=== PATIENT | female | born 1945 | race Caucasian/White ===

== ENCOUNTER 2017-01-11 19:23 | Emergency (ER) | payer MEDICARE, OTHER ==
[~2017-01-11] VITALS: Ht 165.1 cm; Wt 132.3 kg
[~2017-01-11 19:23] MED LIST: AMLO5TAB2 PO; ASPI-628 PO; GLIP2.5T2 PO; MAGN200T PO; METF10002 PO; NAPR500T5 PO; OXAP-1 PO; TOP200 PO; VALS320T12 PO
[2017-01-11 19:33] VITALS: BP 193/89; PULSE 78; RESP 18; O2SAT 97
--- NOTE | 2017-01-11 20:01 | ED.REPORT ---
HPI-Abd Pain F 40 and Over Date of Service January 11, 2017 ED Provider: The patient is a 71 year old female with history of kidney stones, hypertension , and diabetes mellitus, who presents to the emergency department complaining of severe left-sided flank pain that began a few hours ago. She has also experienced lower abdominal pain, back pain, increased urination frequency, nausea, and vomiting. Her pain has waxed and waned since onset. Her pain is currently an 8/10 and at most severe it was a 10/10. Her current symptoms are similar to when she was previously diagnosed with a kidney stone. Her last kidney stone was about 1 year ago. She denies dysuria, hematuria, fever or chills. Nursing Notes Stated Complaint: ABDOMINAL PAIN, HIGH BLOOD PRESSURE Chief Complaint: Female Abdominal Pain Nursing Notes Reviewed: Yes Allergies: Coded Allergies: Penicillins (Verified Allergy, Unknown, 02/22/15) Sulfa (Sulfonamide Antibiotics) (Verified Allergy, Unknown, 02/22/15) Zinc (Verified Allergy, Unknown, 02/22/15) oxycodone (Verified Allergy, Unknown, 02/22/15) Scheduled Amlodipine (Amlodipine) 5 Mg Tablet 5 MG PO DAILY Aspirin (Aspir 81) 81 Mg Tablet.dr 81 MG PO DAILY Ciprofloxacin (Ciprofloxacin) 500 Mg Tablet 500 MG PO BID Glipizide ER (Glipizide ER) 2.5 Mg Tab.er.24 2.5 MG PO DAILY Magnesium (Magnesium) 200 Mg Tablet 400 MG PO BID Metformin (Metformin) 1,000 Mg Tablet 1,000 MG PO BIDWM Metoprolol Succinate ER (Toprol XL) 200 Mg Tabcr 200 MG PO DAILY Oxaprozin (Oxaprozin) 600 Mg Tablet 600 MG PO DAILY Valsartan (Valsartan) 320 Mg Tablet 320 MG PO DAILY Scheduled PRN Hydrocodone-Acetaminophen 5-325 mg (Hydrocodone-Acetaminophen 5-325 mg) 1 Each Tablet 1 TABLET PO Q4H PRN PRN For Pain Naproxen (Naproxen) 500 Mg Tablet.dr 500 MG PO BID PRN PRN For Pain Ondansetron ODT (Ondansetron ODT) 4 Mg Tab.rapdis 4 MG PO Q6H PRN PRN For Nausea General Time Seen by MD: 20:01 Chief Complaint Flank pain left Hx Obtained From: Patient Arrived By: Walk-in Sudden in Onset?: Yes Onset Occurred: 1 - 4 hours ago Symptom Duration: Waxes and wanes Progression since Onset: Waxes and wanes Location: : Flank left Quality: Painful Radiation: : Back: Suprapubic Severity: Current: Pain level 8 out of 10 Severity: Maximum: Pain level 10 out of 10 Associated with: Reports: Back pain, Nausea, Vomiting Pertinent Negative: Pt denies other symptoms Recent Healthcare: No recent doctor visit, No recent hospitalization Similar Sx Previous: Yes Past Medical History Past Medical History Notes: Urologist: Dr. Blackmon Past Medical History Kidney stones Diabetes mellitus Hypertension Family History Noncontributory Smoking History Former Smoker Social History Other Social History: Good social support, , Local resident Ambulatory Status Independent Review of Systems Constitutional: Denies: Chills, Fever GI: Reports: Abdominal pain, Nausea, Vomiting Female: Reports: Flank pain, Urinary frequency, Urination increased, Denies: Dysuria, Hematuria Musculoskeletal: Reports: Back pain Complete sys rev & neg: except as marked. Physical Exam Vital Signs Vital Signs (First) Date Time Temp Pulse Resp B/P Pulse Ox O2 Delivery O2 Flow Rate FiO2 01/11/17 19:33 36.1 78 18 193/89 97 Room Air Initial VS: Reviewed, Vital signs abnormal Head / Eyes: Atraumatic, Normocephalic, PERRL ENT: Mucous membranes moist, Conjunctiva normal, No scleral icterus Neck: Supple, Non-tender, Full range of motion Extremities: Vascular intact, Neuro intact, No swelling, No tenderness Skin: Warm, Dry, No cyanosis Neurologic: Alert, Oriented, Nonfocal Psychiatric: Mood/affect normal, Behavior normal, Normal thought content General/Constitutional: Awake, Alert, Cooperative Respiratory / Chest: Atraumatic, Breath sounds NL, Breath sounds = bilat, No respiratory distress, No rales, No rhonchi, No wheezing, No stridor Cardiovascular: Heart rate NL, Regular rhythm, Heart sounds NL, No murmurs, No rubs, Peripheral circulation NL Abdomen: Soft, No guarding, No rebound, BS normoactive, No distention, No hernia, No palpable mass, No pulsatile mass Tenderness to LLQ, suprapubic region, and RLQ, worse to the LLQ. Back: No midline vertebral tend Flank / Spine / Paraspinal: Positive: Flank tender L Interpretation & Diagnostics CT KUB IMPRESSION: Mildly obstructive proximal left ureteral calculus, with additional left nephrolithiasis as detailed above. Additional chronic and incidental findings as above Dictated by: Pranav Soto M.D. on 01/11/2017 at 20:47 Lab Results Interpretation Result Diagram: 01/11/17200501/11/172005 Test 01/11/17 20:06 01/11/17 20:07 01/11/17 21:48 White Blood Count 7.8th/mm3 (3.8-10.1) Red Blood Count 4.08mil/mm3 (3.90-5.20) Hemoglobin 13.1g/dL (12.0-15.6) Hematocrit 38.8% (35.0-46.0) Mean Corpuscular Volume 95.1fL (81-100) Mean Corpuscular Hemoglobin 32.1pg (27.0-35.0) Mean Corpuscular Hemoglobin Concent 33.8% (32.0-37.0) Red Cell Distribution Width 12.6% (12.3-15.4) Platelet Count 145bil/L (150-400) Neutrophils (%) (Auto) 71.8% (40-74) Lymphocytes (%) (Auto) 16.0% (14-46) Monocytes (%) (Auto) 10.5% (4-12) Eosinophils (%) (Auto) 1.5% (0-5) Basophils (%) (Auto) 0.1% (0-3) Sodium Level 135mEq/L (134-144) Potassium Level 4.3mEq/L (3.5-5.2) Chloride Level 95mEq/L (97-108) Carbon Dioxide Level 25mmol/L (18-29) Blood Urea Nitrogen 23mg/dL (8-27) Creatinine 0.81mg/dL (0.57-1.00) Estimat Glomerular Filtration Rate 100mL/min (>59) Glucose Level 263mg/dL (60-99) Calcium Level 9.8mg/dL (8.5-10.1) Magnesium Level 1.5mg/dL (1.6-2.6) Total Bilirubin 0.3mg/dL (0.0-1.2) Aspartate Amino Transf (AST/SGOT) 16U/L (0-50) Alanine Aminotransferase (ALT/SGPT) 20U/L (0-32) Alkaline Phosphatase 74U/L (25-165) Total Protein 7.3g/dL (6.4-8.4) Albumin 3.9g/dL (3.4-5.0) Lipase 32U/L (13-60) Hold Thomson Top Tube Received (Received) Urine Color Yellow (YELLOW) Urine Appearance Slightly cloudy Urine pH 5.5 (5.0-8.0) Urine Specific [place] 1.025 (1.003-1.035) Urine Protein 100mg/dL (NEG,TRACE) Urine Glucose (UA) Negativemg/dL (NEGATIVE) Urine Ketones Negativemg/dL (NEGATIVE) Urine Occult Blood Small (NEGATIVE) Urine Nitrite Positive (NEGATIVE) Urine Bilirubin Moderate (NEGATIVE) Urine Ictotest Negative (Negative) Urine Urobilinogen Mmg/dL (NORMAL) Urine Leukocyte Esterase Trace (NEGATIVE) Urine RBC 0-2/hpf (0-2) Urine WBC >50/hpf (0-5) Urine Epithelial Cells Few/hpf (NONE-MOD) Urine Crystals None seen (NONE SEEN) Urine Bacteria Many/hpf (NONE-FEW) Urine Hyaline Casts None/lpf (NONE) Urine Granular Casts None seen (NONE SEEN) Urine Waxy Casts None seen (NONE SEEN) Urine Red Blood Cell Casts None seen (NONE SEEN) Urine White Blood Cell Casts None seen (NONE SEEN) Urine Mucus None seen (None Seen) Urine Trichomonas None seen (NONE SEEN) Urine Yeast None (NONE SEEN) Urinalysis Comment None Urine Culture Reflexed Indicated Re-Eval/Medical Decision Med Decision/Clinical Course The patient presents with symptoms of renal colic as well as pyelonephritis. CT confirms only mildly obstructing stone. The patient was started on antibiotics and pain medication. She does not show any signs of systemic illness at this point it was felt safe for outpatient treatment. She has urologist Dr. Blackmon whom she was told to contact on Friday. Source of Hx: Old records Re-Evaluation/Progress : Time of Eval: 22:33 Re-Evaluation/Progress Note: Rechecked the patient. Discussed results, diagnosis, and plan for discharge. All questions were addressed. Counseled Regarding: Diagnosis, Lab results, Need for follow-up, When/why to return to ED Discharge & Departure Primary Impression: Renal colic Additional Impression: Urinary tract infection Urinary tract infection type: site unspecified Hematuria presence: without hematuria Qualified Code: N39.0 - Urinary tract infection, site not specified Disposition: Home Discharge Condition All VS Reviewed: Yes Condition: Stable Patient Instructions: Renal Colic (ED), Urinary Tract Infection in Women (GEN) Additional Instructions: Thank you for entrusting us with your care today. Your CT scan shows evidence of a kidney stone. Your stone is 3 mm. Use the pain medication and nausea medication as needed. Use the urine strainer to catch the stone. Your urinalysis also shows evidence of a urinary tract infection. We have written you a prescription for an antibiotic. Make sure to drink plenty of fluids. You should followup with your urologist next week for further evaluation and management. Seek care sooner for increased pain, inability to urinate, fever, uncontrollable vomiting, or any other new or concerning symptoms. Referrals: Daryl Lucia MD (PCP) Shonna Blackmon MD Attestation Portions of this note were transcribed by Cat Deal. I, Dr. Waters personally performed the history, physical exam and medical decision-making; I reviewed and confirmed the accuracy of the information in the transcribed note. Signed by: Jose R Diaz, 01/11/2017 at 2245. copies to: Daryl Lucia MD; Shonna Blackmon MD, Jena M MD January 11, 2017 20:01 Cat Deal January 11, 2017 20:08
[2017-01-11 20:10] LABS: BASOPHILS % (AUTO) 0.1 % (0-3); EOSINOPHILS % (AUTO) 1.5 % (0-5); MONOCYTES % (AUTO) 10.5 % (4-12); Mean Corpuscular Hemoglobin 32.1 pg (27.0-35.0); Mean Corpuscular Volume 95.1 fL (81-100); NEUTROPHILS % (AUTO) 71.8 % (40-74); Platelet Count 145 bil/L (150-400)
[2017-01-11] MEDS ORDERED: 0.9% Sodium Chloride 1,000 ML IV ONE ×2 (20:10→21:30)
[2017-01-11] MEDS: HYDROmorphone 0.5 mg/0.5 mL iSecure Syringe IVPUSH PRN ×2 (20:17→20:49)
[2017-01-11] MEDS: Ondansetron 2 mg/mL 2 mL Inj IVPUSH PRN ×2 (20:17→20:49)
[2017-01-11 20:33] LABS: Magnesium 1.5 mg/dL (1.6-2.6)
--- NOTE | 2017-01-11 20:54 | DRSVH ---
PROCEDURE: CT KUB ([id number]) INDICATIONS: left flank pain TECHNIQUE: Noncontrast 5 mm thick sections acquired from the diaphragms to the symphysis. 5 mm thick coronal an d sagittal reformats were then performed. For radiation dose reduction, the following was used: aut omated exposure control, adjustment of mA and/or kV according to patient size. COMPARISON: None. FINDINGS: Image quality: Excellent. Lung bases: Lung bases are clear. Heart size is normal. Urinary system: The paired left left renal calculi measuring approximately 2 mm seen on image 44 seri es 2. There is a larger 7 mm left renal calculus on image 41. There is left perinephric stranding and asymmetric enlargement related to a mildly obstructive 3 mm left renal calculus on image 46. No right-sided urolithiasis is identified. No evidence of right-sided urinary obstruction Other solid organs: Liver and spleen are normal in size. Gallbladder contains a 1 mm calculus incid entally noted. No definite pericholecystic inflammation. Pancreas is normal in contours. No adrenal nodules. Peritoneum and bowel: Unenhanced bowel loops demonstrate normal wall thickness and caliber. No free fluid or air. Appendix normal. There is a small hiatal hernia Nodes and vessels: No retroperitoneal or mesenteric adenopathy by size criteria. Aorta and inferior vena cava are normal in caliber. Abdominal wall: No ventral hernias. Pelvis: No free pelvic fluid. Multiple presumed calcified uterine fibroids. No inguinal hernias or a denopathy. Bones: No suspicious bony lesions. No vertebral body compression fractures. IMPRESSION: Mildly obstructive proximal left ureteral calculus, with additional left nephrolithiasis as detailed above. Additional chronic and incidental findings as above Dictated by: Pranav Soto M.D. on 01/11/2017 at 20:47 Approved by: Pranav Soto M.D. on 01/11/2017 at 20:52
[2017-01-11 21:03] VITALS: BP 180/65; PULSE 80; RESP 16; O2SAT 92
[2017-01-11] MEDS ORDERED: Ketorolac 15 mg/mL Inj IVPUSH ONE (21:05)
[2017-01-11 22:19] LABS: APPEARANCE,URINE SLIGHTLY CLOUDY (CLEAR,HAZY); COLOR,URINE YELLOW (YELLOW)
[2017-01-11 22:20] LABS: ICTOTEST,URINE NEGATIVE (Negative); OCCULT BLOOD,URINE SMALL (NEGATIVE); PH,URINE 5.5 (5.0-8.0); UROBILINOGEN,URINE M mg/dL (NORMAL)
[2017-01-11] MEDS ORDERED: ONDA4TAB12 PO (22:35)
[2017-01-11] MEDS ORDERED: HYDR-4003 PO (22:35)
[2017-01-11] MEDS ORDERED: CIPR-198 PO (22:35)
[2017-01-11] MEDS ORDERED: _HYDROcodone/APAP 5-325 mg Tablet PO PRN (22:40)
[2017-01-11 22:41] VITALS: BP 154/60; PULSE 85; RESP 21; O2SAT 95
[2017-01-11 22:56] VITALS: BP 154/60; PULSE 85; RESP 21; O2SAT 95
[2017-01-12] MEDS ORDERED: HYDR-3605 PO (13:41)
[2017-01-12] MEDS ORDERED: OXYC10TA8 PO (13:41)
[2017-01-12] MEDS ORDERED: HYDR25TA4 PO (13:41)
[2017-01-12] MEDS ORDERED: MELO-259 PO (13:41)
[2017-01-12] MEDS ORDERED: PREG150C PO (13:41)
[2017-01-12] MEDS ORDERED: GLIP5TAB21 PO (13:41)
[2017-01-12] MEDS ORDERED: ASPI-973 PO (17:34)
[2017-01-12] MEDS ORDERED: METF500T4 PO (17:35)
[2017-02-05] MEDS ORDERED: NPR500T PO (11:24)
[2017-02-05] MEDS ORDERED: HYDR-3825 PO (11:24)
[2017-02-05] MEDS ORDERED: DULO60CA61 PO (11:24)
[2017-02-05] MEDS ORDERED: TAMS0.4C98 PO (11:24)
[2017-02-05] MEDS ORDERED: MAGN100T5 PO (11:24)
[2017-02-05] MEDS ORDERED: HYDR-4003 PO (11:24)
[2017-02-05] MEDS ORDERED: OXAP-1 PO (11:24)
[2017-02-05] MEDS ORDERED: VALS320T12 PO (11:24)
[2017-02-05] MEDS ORDERED: SIMV20TA4 PO (11:46)
== END 2017-01-11 23:23 | disposition home or self-care (01) ==
LOC: SED 19:23
DX: N23 Unspecified renal colic (principal); N39.0 Urinary tract infection, site not specified; B96.1 Klebsiella pneumoniae [K. pneumoniae] as the cause of diseases classified elsewhere; I10 Essential (primary) hypertension; E11.9 Type 2 diabetes mellitus without complications; Z79.82 Long term (current) use of aspirin; Z79.84 Long term (current) use of oral hypoglycemic drugs; Z87.891 Personal history of nicotine dependence; Z88.0 Allergy status to penicillin; Z88.2 Allergy status to sulfonamides; Z88.5 Allergy status to narcotic agent; Z88.8 Allergy status to other drugs, medicaments and biological substances
CPT/HCPCS: 36415; 74176; 80053; 81000; 83690; 83735; 85025; 87077; 87086; 87088; 87186; 96374; 96375; 96376; 99285; J1170; J1885; J2405; J7030

== ENCOUNTER 2017-01-12 13:11 | Inpatient (IN) | payer MEDICARE, OTHER ==
[~2017-01-12] VITALS: Ht 165.1 cm; Wt 135.9 kg
[2017-01-12] VITALS (14 sets, daily range): BP systolic 100–139; BP diastolic 46–66; PULSE 73–78; RESP 15–20; O2SAT 88–98
--- NOTE | 2017-01-12 13:09 | ED.REPORT ---
HPI-Neurologic Deficit Date of Service January 12, 2017 ED Provider: Cam Syed DO The pt is a 71 y/o female w/ a hx of current proximal left ureteral colic wjth partial obstruction, diabetes mellitus, and HTN presenting to the ED via EMS due to syncope earlier this morning. The patient was with her daughte when she began to feel weak and generally unwell and experienced a syncopal episode. EMS was called and reports left-sided weakness on scene. They noted her BP while laying down was 80/40 and improved to 140/80 on route to the ED. Her GCS score was originally 7 but improved to 15 after laying down. She was afebrile. Per the pt, she is experiencing back and lower abdominal pain rated w/ a severity of 8/10, and nausea. She is on narcotic pain medications and does not remember taking any today but she is unsure and "could have". She was here yesterday for renal colic and was given Dilaudid and an antibiotic. Nursing Notes Stated Complaint: WEAKNESS Nursing Notes Reviewed: Yes Allergies: Coded Allergies: morphine (Verified Allergy, Mild, "I go banana's", 01/12/17) Penicillins (Verified Allergy, Unknown, 02/22/15) Sulfa (Sulfonamide Antibiotics) (Verified Allergy, Unknown, 02/22/15) Zinc (Verified Allergy, Unknown, 02/22/15) oxycodone (Verified Allergy, Unknown, 02/22/15) Scheduled Amlodipine (Amlodipine) 5 Mg Tablet 10 MG PO DAILY Aspirin (Aspir 81) 81 Mg Tablet.dr 81 MG PO DAILY Glipizide ER (Glipizide ER) 10 Mg Tab.er.24 10 MG PO DAILY Hydrochlorothiazide (Hydrochlorothiazide) 25 Mg Tablet 25 MG PO DAILY Meloxicam (Meloxicam) 7.5 Mg Tablet 7.5 MG PO DAILY Metformin (Metformin) 1,000 Mg Tablet 1,000 MG PO BIDWM Metoprolol Succinate ER (Toprol XL) 200 Mg Tabcr 200 MG PO DAILY Pregabalin (Lyrica) 150 Mg Capsule 150 MG PO HS Scheduled PRN HydrOXYzine HCl (HydrOXYzine HCl) 10 Mg Tablet 10 MG PO BID PRN PRN For Itching oxyCODONE (oxyCODONE) 10 Mg Tablet 10 MG PO Q4H PRN PRN For Pain General Time Seen by Provider: 13:13 Chief Complaint Syncope Hx Obtained From: Patient, EMS Arrived By: Ambulance Sudden in Onset?: Yes Onset Occurred: Just prior to arrival Symptom Duration: 1 - 15 minutes Location: : Back lower Quality: Painful Severity: Current: Moderate Severity: Maximum: Moderate Recent Healthcare: No recent hospitalization, Recent doctor visit Past Medical History Past Medical History Notes: Urologist: Dr. Blackmon Past Medical History Kidney stones Diabetes mellitus Hypertension Past Surgical History None reported Family History Noncontributory Smoking History Former Smoker Social History Other Social History: Good social support, , Local resident Ambulatory Status Independent Review of Systems Constitutional: Denies: Fever GI: Reports: Abdominal pain (Lower), Nausea Musculoskeletal: Reports: Back pain Neurologic: Reports: Syncope, Weakness (L sided ) Complete sys rev & neg: except as marked. Physical Exam Initial Vital Signs Vital Signs (First) Date Time Temp Pulse Resp B/P Pulse Ox O2 Delivery O2 Flow Rate FiO2 01/12/17 13:20 36.3 75 16 105/46 88 Nasal Cannula 2 Initial VS: Reviewed Alertness: Positive: Somnolent Appearance / Presentation: Positive: Obese Head / Eyes: Atraumatic, Normocephalic Pupils reactive 3:2 Respiratory / Chest: Atraumatic, Breath sounds NL, Breath sounds = bilat, No respiratory distress, No rales, No rhonchi, No wheezing Cardiovascular: Heart rate NL, Regular rhythm, Heart sounds NL Neurologic: Oriented X3, Speech NL, No motor deficits, No sensory deficits, CN II - XII intact, Reflexes equal bilat, Cerebellar NL ENT: Atraumatic, Airway patent Neck: Atraumatic, Supple, Full range of motion Abdomen: Soft, No guarding, No rebound Lower abd tenderness Back: Atraumatic, Full range of motion Skin: Atraumatic, Color NL, No rash, Warm, Dry Interpretation & Diagnostics Lab Results Interpretation Result Diagram: 01/12/17 1310 01/12/17 1310 Test 01/12/17 13:10 White Blood Count 14.2th/mm3 (3.8-10.1) Red Blood Count 4.04mil/mm3 (3.90-5.20) Hemoglobin 12.9g/dL (12.0-15.6) Hematocrit 38.8% (35.0-46.0) Mean Corpuscular Volume 96.0fL (81-100) Mean Corpuscular Hemoglobin 31.9pg (27.0-35.0) Mean Corpuscular Hemoglobin Concent 33.2% (32.0-37.0) Red Cell Distribution Width 12.7% (12.3-15.4) Platelet Count 145bil/L (150-400) Neutrophils (%) (Auto) 87.2% (40-74) Lymphocytes (%) (Auto) 4.2% (14-46) Monocytes (%) (Auto) 8.2% (4-12) Eosinophils (%) (Auto) 0.1% (0-5) Basophils (%) (Auto) 0.1% (0-3) D-Dimer 3.16mg/L FEU (<0.50) Sodium Level 136mEq/L (134-144) Potassium Level 4.6mEq/L (3.5-5.2) Chloride Level 100mEq/L (97-108) Carbon Dioxide Level 19mmol/L (18-29) Blood Urea Nitrogen 21mg/dL (8-27) Creatinine 1.32mg/dL (0.57-1.00) Estimat Glomerular Filtration Rate 57mL/min (>59) Glucose Level 327mg/dL (60-99) Calcium Level 9.0mg/dL (8.5-10.1) Magnesium Level 1.2mg/dL (1.6-2.6) Total Bilirubin 0.6mg/dL (0.0-1.2) Aspartate Amino Transf (AST/SGOT) 16U/L (0-50) Alanine Aminotransferase (ALT/SGPT) 17U/L (0-32) Alkaline Phosphatase 47U/L (25-165) Troponin T 0.010ug/L (0.0-0.011) Pro-B-Type Natriuretic Peptide 2564pg/mL (0-301) Total Protein 6.6g/dL (6.4-8.4) Albumin 3.4g/dL (3.4-5.0) ECG Interpretation ECG Interpretation: Rate 77 Normal sinus rhythm Time: 14:17 Interpreted by: ED physician X-Ray Chest Interpretation Chest Xray Interpretation: 1. Increased bilateral perihilar opacities and hilar fullness. Findings are nonspecific but mediastinal mass or lymphadenopathy cannot be excluded. Recommend a followup PA and lateral study or CT. 2. Left basilar peripheral opacities consistent with consolidation or atelectasis. Dictated by: Alexander Jules M.D. on 01/12/2017 at 13:51 Approved by: Alexander Jules M.D. on 01/12/2017 at 13:53 View: Portable, 1 view Interpretation / Wet Read by: Interpret - Radiologist CT Head Interpretation IMPRESSION: 1. No acute intracranial abnormality. 2. Mild cerebral volume loss and chronic white matter small vessel ischemic changes. Dictated by: Alexander Jules M.D. on 01/12/2017 at 14:12 Approved by: Alexander Jules M.D. on 01/12/2017 at 14:16 Study: Head CT no contrast Interpretation / Wet Read by: Interpret - Radiologist CT Chest Interpretation IMPRESSION: 1. No central pulmonary embolism. Evaluation of subsegmental branches limited due to motion artifact. 2. Dependent atelectasis in the lungs without consolidation. 3. Bilateral adrenal nodules which demonstrate attenuation values on prior CT consistent with adenomas. 4. Cholelithiasis. Dictated by: Alexander Jules M.D. on 01/12/2017 at 14:16 Approved by: Alexander Jules M.D. on 01/12/2017 at 14:24 Study type: CT pulm angiogram Interpretation / Wet Read by: Interpret - Radiologist Re-Eval/Medical Decision Med Decision/Clinical Course Likely pyelonephritis and a non-obstructing kidney stone with associated syncope, hypotension in the prehospital setting and hypomagnesemia. Patient will be admitted. IV Rocephin and 4 g IV magnesium given. Patient will be taken to the OR for stent placement. Source of Hx: Old records, EMS Re-Evaluation/Progress : Time of Eval: 14:54 Re-Evaluation/Progress Note: Told pt Dr. Blackmon will see her. Discussed diagnosis and plan for admission. Code status discussed: Full code All questions addressed. Consultation #1: Referral / Consult Name: Shonna Blackmon MD Consulted With: Urology Call Returned at: 14:45 Note: Discussed pt plan. Pt needs a stent for infected kidney stone. Consultation #2: Referral / Consult Name: Glendy Wolf MD Consulted With: Hospitalist Call Returned at: 15:11 Packer Inspector: Will see patient, Agrees with eval, Agrees with plan, Accepts admit Counseled Regarding: Diagnosis, Lab results, Need for admission Discharge & Departure Impression: Primary Impression: Obstructive pyelonephritis Additional Impression: Syncope Syncope type: unspecified Qualified Code: R55 - Syncope and collapse Disposition: ADMITTED TO HOSPITAL Discharge Condition All VS Reviewed: Yes Condition: Stable Referrals: Annalee Barton MD (PCP) Crit Care Except Billable Proc Time Spent: 30-74 minutes Services Performed: Patient management by me, Time spent at bedside, Reviewing test results Critical Care Notes: See MDM Scribe Attestation Portions of this note were transcribed by Jonny Spencer and Mingo Dick. I, Dr. Myra Aguiar personally performed the history, physical exam and medical decision- making; I reviewed and confirmed the accuracy of the information in the transcribed note. Signed by: Jonny Spencer and Mingo Dick, Scribes, 01/12/17 and 1338. copies to: Annalee Barton MD, Timothy Ilsa FISHER January 12, 2017 13:09 Jonny Spencer January 12, 2017 13:25 MINGO DICK January 12, 2017 14:04
[~2017-01-12 13:11] MED LIST changes: +CIPR-198 PO; +HYDR-4003 PO; +ONDA4TAB12 PO
[2017-01-12] MEDS ORDERED: 0.9% Sodium Chloride 1,000 ML IV ONE (13:16)
[2017-01-12] MEDS ORDERED: Ondansetron 2 mg/mL 2 mL Inj IVPUSH ONE (13:20)
[2017-01-12 13:24] LABS: BASOPHILS % (AUTO) 0.1 % (0-3); EOSINOPHILS % (AUTO) 0.1 % (0-5); MONOCYTES % (AUTO) 8.2 % (4-12); Mean Corpuscular Hemoglobin 31.9 pg (27.0-35.0); NEUTROPHILS % (AUTO) 87.2 % (40-74); Platelet Count 145 bil/L (150-400)
[2017-01-12] MEDS ORDERED: HYDR25TA4 PO (13:41)
[2017-01-12] MEDS ORDERED: HYDR-3605 PO (13:41)
[2017-01-12] MEDS ORDERED: OXYC10TA8 PO (13:41)
[2017-01-12] MEDS ORDERED: GLIP5TAB21 PO (13:41)
[2017-01-12] MEDS ORDERED: PREG150C PO (13:41)
[2017-01-12] MEDS ORDERED: MELO-259 PO (13:41)
[2017-01-12 13:43] LABS: TROPONIN T 0.01 ug/L (0.0-0.011)
--- NOTE | 2017-01-12 14:00 | DRSVH ---
PROCEDURE: X-RAY CHEST ONE VIEW, PORTABLE ([id number]) INDICATIONS: syncope vs cva TECHNIQUE: One view of the chest was acquired. COMPARISON: [facility], , CHEST 2VW, 01/27/2015, 11:04. FINDINGS: Surgical changes and devices: None. Lungs and pleura: No pleural effusions or pneumothorax. There is increased hilar fullness bilateral ly with a few perihilar streaky opacities. There also peripheral left basilar opacities. Mediastinum: Mediastinal contours appear prominent likely due to low volumes and portable technique. Heart size is mildly enlarged. Bones and chest wall: No suspicious bony lesions. Overlying soft tissues appear unremarkable. IMPRESSION: 1. Increased bilateral perihilar opacities and hilar fullness. Findings are nonspecific but mediast inal mass or lymphadenopathy cannot be excluded. Recommend a followup PA and lateral study or CT. 2. Left basilar peripheral opacities consistent with consolidation or atelectasis. Dictated by: Alexander Jules M.D. on 01/12/2017 at 13:51 Approved by: Alexander Jules M.D. on 01/12/2017 at 13:53
[2017-01-12 14:07] LABS: Magnesium 1.2 mg/dL (1.6-2.6)
[2017-01-12] MEDS ORDERED: Magnesium Sulf 4 Gm/100 mL H2O 4 GM in IV Premix 1 EACH IV ONE (14:10)
[2017-01-12] MEDS ORDERED: cefTRIAXone Inj 2,000 MG in Dextrose 5% Minibag Plus 50 ML IV ONE (14:10)
--- NOTE | 2017-01-12 14:23 | DRSVH ---
PROCEDURE: CT BRAIN WITHOUT CONTRAST ([id number]) INDICATIONS: left sided weakness resolved TECHNIQUE: Noncontrast 4.5 mm thick angled axial sections acquired from the foramen magnum to the vertex, with c oronal reformats. COMPARISON: None. FINDINGS: Image quality: Excellent. CSF spaces: Basal cisterns are patent. No extra-axial fluid collections. There is mild cerebral vo lume loss, with resultant ventricular and sulcal prominence. Brain: No intracranial hemorrhage, mass, or mass effect. There are subcortical, periventricular and deep white matter hypodensities consistent with mild chronic small vessel ischemic changes. There i s intracranial internal carotid artery atherosclerosis. Skull and face: Calvarium and visualized facial bones appear intact, without suspicious lesions. Sinuses: Visualized sinuses and mastoids are clear. IMPRESSION: 1. No acute intracranial abnormality. 2. Mild cerebral volume loss and chronic white matter small vessel ischemic changes. Dictated by: Alexander Jules M.D. on 01/12/2017 at 14:12 Approved by: Alexander Jules M.D. on 01/12/2017 at 14:16
--- NOTE | 2017-01-12 14:31 | DRSVH ---
PROCEDURE: CT ANGIO CHEST PULMONARY EMBOLISM ([id number]) INDICATIONS: syncope elevated ddimer TECHNIQUE: After the administration of intravenous contrast, 2 mm thick sections acquired from the pulmonary api sherry to the posterior costophrenic angles. 3-dimensional maximum intensity projection (MIP) coronal a nd sagittal reformats were then acquired through the thorax. For radiation dose reduction, the follo wing was used: automated exposure control, adjustment of mA and/or kV according to patient size. COMPARISON: [facility], CT, CT KUB, 01/11/2017, 20:15. FINDINGS: Image quality: There is mild motion artifact. Pulmonary arteries: Pulmonary arteries demonstrate no intraluminal filling defects to suggest centra l pulmonary embolism with evaluation of subsegmental branches limited due to motion artifact. Lungs and pleura: There is dependent atelectasis bilaterally. No pleural effusions or pneumothorax. Central and peripheral airways are patent. Mediastinum: Heart size is normal, without pericardial effusion. No mediastinal or hilar adenopathy . Thoracic aorta is normal in caliber and enhancement. Esophagus is normal in caliber, with a small hiatal hernia. Bones and chest wall: No suspicious bony lesions. Ribs and thoracic spine appear intact throughout. Thyroid gland demonstrates a discrete nodules. No axillary or supraclavicular adenopathy. Abdomen: Visualized upper abdomen demonstrate a small calcified gallstone in the gallbladder without wall thickening. There are bilateral adrenal nodules redemonstrated measuring up to 1.6 cm on the l eft. There is partially visualized perinephric stranding along the left kidney again noted. IMPRESSION: 1. No central pulmonary embolism. Evaluation of subsegmental branches limited due to motion artifac t. 2. Dependent atelectasis in the lungs without consolidation. 3. Bilateral adrenal nodules which demonstrate attenuation values on prior CT consistent with adenom as. 4. Cholelithiasis. Dictated by: Alexander Jules M.D. on 01/12/2017 at 14:16 Approved by: Alexander Jules M.D. on 01/12/2017 at 14:24
[2017-01-12] MEDS ORDERED: Ondansetron 2 mg/mL 2 mL Inj IVPUSH PRN ×4 (15:00→16:35)
[2017-01-12] MEDS ORDERED: Alum-Mag Hydrox-Simeth 30 mL Suspension PO PRN ×2 (15:15→18:20)
[2017-01-12] MEDS ORDERED: 0.9% Sodium Chloride 1,000 ML IV SCH (15:15)
[2017-01-12] MEDS ORDERED: HYDROmorphone 0.5 mg/0.5 mL iSecure Syringe IVPUSH ONE (15:20)
--- NOTE | 2017-01-12 15:34 | PCM.HPANE ---
Patient Data Date of Service: January 12, 2017 Surgeon Admitting Provider: Attending Provider: Primary Care Physician:Annalee Barton MD Other Provider: Reason for Visit Weakness Ht/WT & BMI Height (Feet): 5 Height (Inches): 5 Weight (Kilograms): 135.7 Body Mass Index Allergies Coded Allergies: morphine (Verified Allergy, Mild, "I go banana's", 01/12/17) Penicillins (Verified Allergy, Unknown, 02/22/15) Sulfa (Sulfonamide Antibiotics) (Verified Allergy, Unknown, 02/22/15) Zinc (Verified Allergy, Unknown, 02/22/15) oxycodone (Verified Allergy, Unknown, 02/22/15) Past Anesthesia History Anesthesia History: Denies:: Anesthesia Reactions, Fam Anesthesia Reaction, Fam Malignant Hypertherm, Malignant Hyperthermia Diabetes History Hx Diabetes?: Yes (NIDDM) Type of Diabetes: Type II Glycemic Control: Oral Medication MRSA MRSA: No Medications Blood Thinner: Aspirin Reported Medications oxyCODONE 10 Mg Ianqnb45 Mg PO Q4H PRN For Pain Ref 0 01/12/17 HydrOXYzine HCl 10 Mg Cceixo38 Mg PO BID PRN For Itching Ref 0 01/12/17 Hydrochlorothiazide 25 Mg Zlfdpj09 Mg PO DAILY 30 Days Ref 0 01/12/17 Meloxicam 7.5 Mg Tablet7.5 Mg PO DAILY 30 Days Ref 0 01/12/17 Pregabalin (Lyrica)150 Mg Uvskhbr093 Mg PO HS 30 Days Ref 0 01/12/17 Glipizide ER 10 Mg Tab.er.2410 Mg PO DAILY 01/12/17 Metoprolol Succinate ER (Toprol XL)200 Mg Kpfpm782 Mg PO DAILY 30 Days Ref 0 02/03/15 Metformin 1,000 Mg Tablet1,000 Mg PO BIDWM 30 Days Ref 0 02/03/15 Aspirin (Aspir 81)81 Mg Tablet.dr81 Mg PO DAILY Ref 0 02/03/15 Amlodipine 5 Mg Rtvins06 Mg PO DAILY 30 Days Ref 0 02/03/15 Discontinued Reported Medications Valsartan 320 Mg Uheqda322 Mg PO DAILY 02/08/15 Oxaprozin 600 Mg Lcsgzx340 Mg PO DAILY 02/03/15 Naproxen 500 Mg Tablet.dr500 Mg PO BID PRN For Pain Ref 0 02/03/15 Magnesium 200 Mg Qbfshv481 Mg PO BID 02/03/15 Glipizide ER 2.5 Mg Tab.er.242.5 Mg PO DAILY 30 Days 02/03/15 Discontinued Scripts Ciprofloxacin 500 Mg Hgnazc727 Mg PO BID #16 TABLET Prov:Latrice Waters MD 01/11/17 Hydrocodone-Acetaminophen 5-325 mg 1 Each Tablet1 Tablet PO Q4H PRN For Pain # 20 TABLET Prov:Latrice Waters MD 01/11/17 Ondansetron ODT 4 Mg Tab.rapdis4 Mg PO Q6H PRN For Nausea #14 TABLET Prov:Latrice Waters MD 01/11/17 History History of ENT Problems?: No HEENT History: Positive for:: Abnormal Airway Sinus Problem (r/t use of CPAP-makes pt congested) Denture Type: Full- Upper Teeth Condition: Within Normal Limits Hx of Heart Problems?: No Cardiovascular History: Positive for:: Edema Hypertension Denies:: Congestive Heart Failure Hx of Respiratory Problem?: No Respiratory History: Positive for:: Use of C-PAP Machine Denies:: Tuberculosis Hx Neurologic Problems?: Yes Neurological History: Positive for:: Headaches Other History/Comments syncope today, takes chronic opioids Hx of GI Problems?: No Hx of Problems?: Yes Genitourinary History: Positive for:: Kidney Stones (right kidney stone current problem) Female Hx: Denies:: Currently Skin History: Denies:: History Skin Disorders? Pressure Ulcers Hx Musculoskeletal Problems?: Yes Musculoskeletal History: Positive for:: Back Injury (chronic back pain r/t herniated L2-L3 disks) Denies:: Joint Replacement Musculoskeletal Trauma Hx of Psycho/Social Problems?: No Hx Surgeries?: Yes (left total knee 2009/ prior kidney stone ) Hx Any Other Health Problems?: Yes Other History: Denies:: Cancer Endocrine Disease Hospitalization Thyroid Disease History Blood Transfusions: Denies:: Blood Transfusions Hx Diabetes: Yes (NIDDM) Hx Alcohol Use: NoHx Substance Use: No Smoking Status: Former Smoker Have You Smoked inLast 12 mo: No Stop/Bang Risk Assessment Category Category 1A: Patient has history of documented sleep apnea, and HAS NOT received any narcotic, sedative or anesthesia administration during this stay. Category 1B: Patient has history of documented sleep apnea, and HAS received any narcotic , sedative or anesthesia administration during this stay Category 2: Patient has SUSPECTED Obstructive Sleep Apnea, and HAS received any narcotic , sedative or anesthesia administration during this stay. Category 3: Patient has SUSPECTED Obstructive Sleep Apnea and HAS NOT received narcotic, sedative or anesthesia administration during this stay. Category 4: Outpatient in Procedural Areas with known sleep apnea or who screen positive for High Risk via the STOP/BANG questionnaire. Exam Exam Vital Signs Vital Signs Date Time Temp Pulse Resp B/P Pulse Ox O2 Delivery O2 Flow Rate FiO2 01/12/17 15:29 77 15 134/54 96 Room Air 01/12/17 14:57 73 16 124/53 96 Nasal Cannula 2 01/12/17 13:30 73 16 100/48 98 2 01/12/17 13:20 36.3 75 16 105/46 88 Nasal Cannula 2 General Appearance: Oriented X3, Cooperative HEENT/AIRWAY: MP 3 Lungs: Clear to Auscultation Heart: Regular Rate/Rhythm Meds/Labs/Diagnostics Admission Meds Current Medications Sodium Chloride (Normal Saline) 1,000 ml @ 0 mls/hr Q0M ONCE IV Last administered on 01/12/17 13:30; Start 01/12/17 at 13:16; Stop 01/12/17 at 13:18 ; Status DC Ondansetron HCl 4 mg 4 mg ONCE ONCE IVPUSH Last administered on 01/12/17 13: 30; Start 01/12/17 at 13:20; Stop 01/12/17 at 13:21; Status DC Magnesium Sulfate 4 gm/Premix 100 ml @ 33.333 mls/ hr ONCE ONCE IV Last administered on 01/12/17 15:04; Start 01/12/17 at 14:10; Stop 01/12/17 at 17:09 Ceftriaxone Sodium/Dextrose/ Water (Rocephin Inj/ D5W Minibag Plus) 50 ml @ 100 mls/hr ONCE ONCE IV Last administered on 01/12/17 14:26; Start 01/12/17 at 14:10; Stop 01/12/17 at 14:39; Status DC Hydromorphone HCl (Dilaudid Inj) 0.5 mg ONCE ONCE IVPUSH Last administered on 01/12/17 15:24; Start 01/12/17 at 15:20; Stop 01/12/17 at 15:21; Status DC Labs Test 01/12/17 13:10 White Blood Count 14.2th/mm3 (3.8-10.1) Red Blood Count 4.04mil/mm3 (3.90-5.20) Hemoglobin 12.9g/dL (12.0-15.6) Hematocrit 38.8% (35.0-46.0) Mean Corpuscular Volume 96.0fL (81-100) Mean Corpuscular Hemoglobin 31.9pg (27.0-35.0) Mean Corpuscular Hemoglobin Concent 33.2% (32.0-37.0) Red Cell Distribution Width 12.7% (12.3-15.4) Platelet Count 145bil/L (150-400) Neutrophils (%) (Auto) 87.2% (40-74) Lymphocytes (%) (Auto) 4.2% (14-46) Monocytes (%) (Auto) 8.2% (4-12) Eosinophils (%) (Auto) 0.1% (0-5) Basophils (%) (Auto) 0.1% (0-3) D-Dimer 3.16mg/L FEU (<0.50) Sodium Level 136mEq/L (134-144) Potassium Level 4.6mEq/L (3.5-5.2) Chloride Level 100mEq/L (97-108) Carbon Dioxide Level 19mmol/L (18-29) Blood Urea Nitrogen 21mg/dL (8-27) Creatinine 1.32mg/dL (0.57-1.00) Estimat Glomerular Filtration Rate 57mL/min (>59) Glucose Level 327mg/dL (60-99) Calcium Level 9.0mg/dL (8.5-10.1) Magnesium Level 1.2mg/dL (1.6-2.6) Total Bilirubin 0.6mg/dL (0.0-1.2) Aspartate Amino Transf (AST/SGOT) 16U/L (0-50) Alanine Aminotransferase (ALT/SGPT) 17U/L (0-32) Alkaline Phosphatase 47U/L (25-165) Troponin T 0.010ug/L (0.0-0.011) Pro-B-Type Natriuretic Peptide 2564pg/mL (0-301) Total Protein 6.6g/dL (6.4-8.4) Albumin 3.4g/dL (3.4-5.0) Plan Impression Patient chart reviewed, patient interviewed and anesthestic plan with risks, benefits, and alternatives discussed, and informed consent obtained. ASA Physical Status: ASA3 Severe Disease Anesthetic Plan: GA Bene/Risks/Altern/Consents: Yes HP Complete Prior to Induction: Yes Rinku Samano MD January 12, 2017 15:34
[2017-01-12] MEDS ORDERED: fentaNYL-PF 50 mCg/mL 2 mL Inj ONE (15:41)
[2017-01-12] MEDS ORDERED: Propofol 10,000 mCg/mL 20 mL Inj ONE ×2 (15:41)
[2017-01-12] MEDS ORDERED: Phenylephrine/NS 100 mCg/mL 10 mL Syringe IVPUSH ONE ×2 (15:41)
[2017-01-12] MEDS ORDERED: Ondansetron 2 mg/mL 2 mL Inj ONE ×2 (15:41)
[2017-01-12] MEDS ORDERED: Ketamine 10 mg/mL 20 mL Inj ONE (15:41)
[2017-01-12] MEDS ORDERED: Lactated Ringer's 1,000 ML IV ONE (15:59)
[2017-01-12] MEDS ORDERED: Lactated Ringer's 500 ML IV PRN (16:18)
[2017-01-12] MEDS ORDERED: Lactated Ringer's 1,000 ML IV SCH ×2 (16:18→16:32)
[2017-01-12] MEDS ORDERED: HYDROmorphone 1 mg/mL Inj IVPUSH PRN ×3 (16:20→18:25)
[2017-01-12] MEDS ORDERED: Phenylephrine 10,000 mCg/mL Inj IVPUSH PRN (16:20)
[2017-01-12] MEDS ORDERED: fentaNYL-PF 50 mCg/mL 2 mL Inj IVPUSH PRN (16:20)
[2017-01-12] MEDS ORDERED: Atropine 0.4 mg/mL Inj IVPUSH PRN (16:20)
[2017-01-12] MEDS ORDERED: MetoCLOpramide 5 mg/mL 2 mL Inj IVPUSH PRN ×2 (16:20→16:35)
[2017-01-12] MEDS ORDERED: EPHEDrine Sulfate 50 mg/mL Inj IVPUSH PRN (16:20)
[2017-01-12] MEDS ORDERED: Labetalol 5 mg/mL 4 mL Inj IV PRN (16:20)
[2017-01-12] MEDS ORDERED: diphenhydrAMINE 25 mg Capsule PO PRN (16:35)
[2017-01-12] MEDS ORDERED: Polyethylene Glycol (PEG) 17 Gm Powder PO PRN ×2 (16:35→18:20)
[2017-01-12] MEDS ORDERED: oxyCODONE-Acetamin 5-325 mg Tablet PO PRN (16:35)
[2017-01-12] MEDS ORDERED: Ketorolac 15 mg/mL Inj IVPUSH PRN (16:55)
[2017-01-12] MEDS ORDERED: ASPI-973 PO (17:34)
--- NOTE | 2017-01-12 17:34 | PCM.ANEP1 ---
Post Anesthesia Phase 1 PACU Phase 1 Assessment Date of Service: January 12, 2017 Vital Signs Vital Signs Date Time Temp Pulse Resp B/P Pulse Ox O2 Delivery O2 Flow Rate FiO2 01/12/17 16:55 37.3 77 15 125/50 96 Nasal Cannula 3 01/12/17 16:50 76 16 116/47 96 Nasal Cannula 3 01/12/17 16:45 74 16 113/54 97 Nasal Cannula 3 01/12/17 16:40 76 16 128/50 97 Nasal Cannula 3 01/12/17 16:35 76 18 139/59 97 Nasal Cannula 3 01/12/17 16:30 37.1 74 16 137/63 97 Simple Mask 8 01/12/17 15:29 77 15 134/54 96 Room Air 01/12/17 14:57 73 16 124/53 96 Nasal Cannula 2 01/12/17 13:30 73 16 100/48 98 2 01/12/17 13:20 36.3 75 16 105/46 88 Nasal Cannula 2 Anesthetic Administered: GA Level of Alertness: Awake, talking CAMPA's with Equal Strength: Yes Pain: No Nausea or Vomiting: No Cardiovascular Function and Hy: Yes Oxygen Delivery: Simple Mask Complications: No Follow up Care: No Rinku Samano MD January 12, 2017 17:34
[2017-01-12] MEDS ORDERED: METF500T4 PO (17:35)
--- NOTE | 2017-01-12 17:47 | OP ---
[address] [address] OPERATIVE REPORT PATIENT: DARCIE SHAH : 1945 MR#: [id number] ADMIT: 01/12/2017 JOB ID: [id number] DATE OF SURGERY: 01/12/2017 SURGEON: Shonna Blackmon MD. PREOPERATIVE DIAGNOSIS(ES): 1. Left pyelonephritis. 2. Left renal calculus. 3. Left ureteral calculus. POSTOPERATIVE DIAGNOSIS(ES): 1. Left pyelonephritis. 2. Left renal calculus. 3. Left ureteral calculus. PROCEDURE: 1. Cystoscopy. 2. Left stent placement. ANESTHETIC: General. DESCRIPTION OF PROCEDURE: Under general anesthetic, the patient was placed in lithotomy position. Genitalia prepped and draped in a sterile manner. A 22-Cuban cystoscope was introduced through a normal urethra. Ureteral orifices were normal in position and appearance. A 0.035 Glidewire was advanced to the level of the left renal pelvis. Once the Glidewire had been passed, purulent material drained from the kidney. A 6-Cuban 22 cm double-J stent was then passed over the wire. When it was confirmed to be in good position fluoroscopically, the string was cut and removed and the wire withdrawn. The patient tolerated the procedure well and left the operating room in good condition. Plan is to have her complete a course of antibiotics. She will be discharged home on oral antibiotics. I will see her in the office in followup and will plan on dealing with her obstructing calculus in 1-2 weeks.
--- NOTE | 2017-01-12 18:16 | NUR ---
Patient admit Pt. admitted to floor at 1715 from the OR. Admit questions and medication rec completed. Temp. 36.7, pulse 75, respirations 20, bp 109/66, O2 91% on room air. Patient oriented to room. Call light in reach and bed in lowest position.
[2017-01-12] MEDS ORDERED: Magnesium Sulf 2 Gm/50mL Water 2 GM in IV Premix 1 EACH IV ONE (18:25)
[2017-01-12] MEDS ORDERED: Glucose 40% Oral Gel 15 Gm Tube PO PRN (18:25)
[2017-01-12] MEDS: 0.9% Sodium Chloride 1,000 ML IV SCH (18:52)
--- NOTE | 2017-01-12 20:19 | HP ---
[address] [address] HISTORY AND PHYSICAL PATIENT: DARCIE SHAH : 1945 MR#: [id number] ADMIT: 01/12/2017 JOB ID: [id number] PRIMARY CARE PROVIDER: Annalee Barton MD, at [facility]. Patient admitted from the ED, inpatient status, Green Team. CHIEF COMPLAINT: Near-syncopal, weakness, and fever. HISTORY OF PRESENT ILLNESS: This is a 71-year-old, white female who has been feeling real well for a couple days. She had chills this morning and possibly fever. She has not had any burning or dysuria. She developed severe back pain, colicky type pain on the left. She got so weak she kind of almost fainted. Paramedics were called. At 1st there was a potential stroke but paramedics realized her blood pressure was low and they laid her down and she immediately recovered. She is brought to the hospital for evaluation. The patient had an elevated white count and was found to have a left renal stone in the ureter, evidence of a UTI. Was started on Rocephin and taken directly to the surgical suite where Dr. Blackmon has passed a left stent in the left ureter. Patient's pain now is gone but she still feels weak and fatigued, with a blood sugar of 327. Creatinine is also up at 1.32. The patient denies chest pain, diarrhea. but did have some nausea, and I think some emesis. No abdominal pain and severe left flank pain. She had no headache, cough, or productive sputum. REVIEW OF SYSTEMS: Complete review of systems obtained, all pertinent positives in the HPI above, rest of review of systems are negative. PAST MEDICAL HISTORY: 1. Hypertension. 2. Kidney stones, known. 3. Obstructive sleep apnea, on CPAP. 4. Rheumatoid arthritis. 5. Type 2 diabetes. MEDICATIONS: 1. Amlodipine 10 daily. 2. Toprol-XL 200 daily. 3. Aspirin 81 daily. 4. Meloxicam daily as needed. 5. Lyrica 150 bedtime. 6. Oxycodone q.4 p.r.n. pain. 7. Hydrochlorothiazide 25 daily. ALLERGIES: 1. PENICILLIN. 2. MORPHINE. 3. SULFA. Patient is not allergic to oxycodone or Dilaudid. She got that earlier today. SOCIAL HISTORY: Lives with her . Apparently, there are alcohol and tobacco issues in the past but she quit 27 years ago. FAMILY HISTORY: Father was killed in a motor vehicle accident at 84. Mother at 90 and had a stroke. PHYSICAL EXAMINATION: Overweight female in bed, resting comfortably at this time. Not in any distress. No fever. O2 sats 91%. Blood pressure is 109/66. Skin is warm and dry. Eyes: PERRLA. Mouth shows adequate hydration. No JVD. Cardiac regular. No murmur. Lungs clear anteriorly. Abdomen is a little tender throughout but nonacute, soft and benign. Extremities showed no significant edema. Cranial nerves 2-12 are intact. No gross motor or sensory defects noted. DIAGNOSIS: 1. Obstructing pyelonephritis. The patient has already gone to the OR. Stent has been placed and she is on Rocephin which will be continued. Await results of sensitivities. 2. Acute renal failure, creatinine of 1.32. Probably secondary to dehydration. Patient received a liter or two in the ER, probably more in the OR, and will continue with NS at 100, repeat a BMP in the morning. 3. Type 2 diabetes. The patient has just started the eat at this time. Will hold her glimepiride and metformin. Put her on correction dose insulin, medium scale. Will get a hemoglobin A1c. Tomorrow morning, depending on her creatinine and other issues, one could consider restarting her glimepiride and metformin. 4. Obstructive sleep apnea. Patient to use her own CPAP here in the hospital. 5. Hypertension. Will hold her antihypertensives and substitute metoprolol 25 tartrate q.6. As she improves, one can restart her Toprol-XL, Norvasc, hydrochlorothiazide. CODE STATUS: Full code DISPOSITION: Primary care provider is Dr. Sanders. Patient lives with in their home.
[2017-01-12] MEDS: Belladonna Alk-Opium 60 mg Rectal Suppository RECTAL SCH (20:39)
--- NOTE | 2017-01-12 21:13 | NUR ---
[facility] signed
[2017-01-12] MEDS: Insulin LISPRO 300 Unit/3 mL Inj SUBQ SCH (21:40)
--- NOTE | 2017-01-12 22:11 | NUR ---
O2 Sat's 88-90% on RA with activity. After placing CPAP O2 sat's went up to 91-92%. Monitored for five minutes right before Sleep.
[2017-01-13] VITALS (7 sets, daily range): BP systolic 108–137; BP diastolic 64–73; PULSE 71–97; RESP 18–20; O2SAT 91–92
[2017-01-13] MEDS: 0.9% Sodium Chloride 1,000 ML IV SCH ×2 (06:30→14:42)
[2017-01-13 07:16] LABS: BASOPHILS % (AUTO) 0.1 % (0-3); EOSINOPHILS % (AUTO) 0.9 % (0-5); MONOCYTES % (AUTO) 14.4 % (4-12); Mean Corpuscular Hemoglobin 31.8 pg (27.0-35.0); Mean Corpuscular Volume 97.9 fL (81-100); NEUTROPHILS % (AUTO) 71.9 % (40-74); Platelet Count 112 bil/L (150-400)
[2017-01-13] MEDS: Ondansetron 2 mg/mL 2 mL Inj IVPUSH PRN ×2 (08:01→18:16)
--- NOTE | 2017-01-13 09:18 | PROG NOTE ---
[address] [address] PROGRESS NOTE PATIENT: DARCIE SHAH : 1945 MR#: [id number] ADMIT: 01/12/2017 JOB ID: [id number] DATE: SUBJECTIVE: Postop day one cystoscopy and left stent placement. The patient is afebrile. Vital signs stable. White count has dropped to 11.3, still with a left shift. Chemistry is essentially unchanged, creatinine 1.31. Sensitivities on the urine culture are still pending. PLAN: My plan will be to switch her over to oral antibiotics once the sensitivities are available, and discharge home when stable. I will plan on seeing her in the office in approximately one week's time. This morning, she has developed some nausea and vomiting as well as some mild upper respiratory symptoms.
[2017-01-13] MEDS: Belladonna Alk-Opium 60 mg Rectal Suppository RECTAL SCH ×2 (10:32→21:36)
[2017-01-13] MEDS: Insulin LISPRO 300 Unit/3 mL Inj SUBQ SCH ×4 (10:32→21:57)
--- NOTE | 2017-01-13 14:06 | NUR ---
Social Work: Initial Assessment Data & Assessment: See Initial Assessment. EMR reviewed. Patient is a 71 y/o female that admitted with pyelonephritis and Obstructive Uretal Stone per H&P. SW met with patient to complete initial assessment, Discharge planning discussed, and SW role complete. Patient was in and out of sllep during assessment, and stated that she had not gotten much sleep. Patient reports that she sees Dr. Annalee Sierra for primary care and has Medicare and [employer] for insurance. Patient reports no LTC or VA benefits. Patient has a readmit score of 2 no-risk. Patient does not have an Advance Directive/DPOA and declined the information. Patient's NOK is her , Obdulio Quiros [phone]. Patient lives in a one story home with her family and it has 3 steps to enter. Patient is independent and drives at baseline. Patient has a cane and walker to use when needed. Patient also has a C-PAP. Patient has no HH or [facility] Facility history. Patient denies any questions at the current time. Patient does not have any current discharge needs. SW will continue to follow and assist patient throughout stay. Plan: Discharge home with family via POV. SW will continue to follow. Aleyda Booth LMSW, BRENDA Addendum: 01/13/17 at 1418 by ALEYDA BOOTH Amended: Links added.
[2017-01-13] MEDS: cefTRIAXone Inj 2,000 MG in Dextrose 5% Minibag Plus 50 ML IV SCH (14:45)
--- NOTE | 2017-01-13 17:57 | NUR ---
nausea / appetite / voiding Mild nausea, retching and scant emesis this morning with breakfast. Patient given 4mg Zofran which resolves nausea and is later able to eat and keep down banana. Patient reports her appetite is "just off, I'm not that hungry". Also reports feeling tired and "run down". Patient able to ambulate to with FWW and SBA for safety. Voiding 200 - 300mL maikel, pink-tinged urine without pain or difficulty. Bed low and locked, call light in reach, care and frequent rounding ongoing.
--- NOTE | 2017-01-13 21:11 | PCM.PNMED ---
Subjective Date of Service January 13, 2017 Subjective Patient states that she felt nauseated this a.m. states that she has some upper respiratory infection. She states that she got it when she was getting to the hospital. She has a sore throat. Denies fevers and chills. Has a little bit of back pain, lower abdominal pain but much better from the time of admission Exam Vital Signs Vital Sign - Last Date Time Temp Pulse Resp B/P Pulse Ox O2 Delivery O2 Flow Rate FiO2 01/13/17 04:51 36.6 71 20 137/72 91 CPAP 01/12/17 16:55 3 Intake and Output 01/12/17 01/12/17 01/13/17 Cumulative From/Thru 15:00 23:00 07:00 01/12/17 13:20 - 01/13/17 05:32 Intake Total 1793 ml 720 ml 2513 ml Output Total 100 ml 350 ml 450 ml Balance 1693 ml 370 ml 2063 ml Intake Oral 443 ml 720 ml 1163 ml IV Total 1350 ml 1350 ml Output Urine Total 100 ml 350 ml 450 ml # Voids 1 1 Exam General: Sleeping while sitting up no acute distress HEENT: Normocephalic, atraumatic Heart: Regular rate and rhythm no S3-S4 sounds Lungs: Clear to auscultation no crackles or wheezes Abdomen obese, normal bowel sounds, mild tenderness in lower quadrants Extremities:: Mild edema is present Psych: Negative for anxiety Neuro: No focal deficits IVs and Medications IV Fluids 50 mL/h normal saline Medications Reviewed: Medications were reviewed in detail Lab and Diagnostics Laboratory Tests Test 01/13/17 06:33 White Blood Count 11.3th/mm3 (3.8-10.1) Red Blood Count 3.36mil/mm3 (3.90-5.20) Hemoglobin 10.7g/dL (12.0-15.6) Hematocrit 32.9% (35.0-46.0) Mean Corpuscular Volume 97.9fL (81-100) Mean Corpuscular Hemoglobin 31.8pg (27.0-35.0) Mean Corpuscular Hemoglobin Concent 32.5% (32.0-37.0) Red Cell Distribution Width 13.3% (12.3-15.4) Platelet Count 112bil/L (150-400) Neutrophils (%) (Auto) 71.9% (40-74) Lymphocytes (%) (Auto) 12.6% (14-46) Monocytes (%) (Auto) 14.4% (4-12) Eosinophils (%) (Auto) 0.9% (0-5) Basophils (%) (Auto) 0.1% (0-3) Sodium Level 137mEq/L (134-144) Potassium Level 4.5mEq/L (3.5-5.2) Chloride Level 100mEq/L (97-108) Carbon Dioxide Level 24mmol/L (18-29) Blood Urea Nitrogen 29mg/dL (8-27) Creatinine 1.31mg/dL (0.57-1.00) Estimat Glomerular Filtration Rate 57mL/min (>59) Glucose Level 179mg/dL (60-99) Calcium Level 8.3mg/dL (8.5-10.1) Total Bilirubin 0.5mg/dL (0.0-1.2) Aspartate Amino Transf (AST/SGOT) 12U/L (0-50) Alanine Aminotransferase (ALT/SGPT) 13U/L (0-32) Alkaline Phosphatase 43U/L (25-165) Total Protein 5.6g/dL (6.4-8.4) Albumin 3.2g/dL (3.4-5.0) Microbiology 01/13/17 Adenovirus DNA (PCR), Received Pending 01/13/17 Coronavirus 229E PCR, Received Pending 01/13/17 Coronavirus HKU1 PCR, Received Pending 01/13/17 Coronavirus NL63 PCR, Received Pending 01/13/17 Coronavirus OC43 PCR, Received Pending 01/13/17 Influenza Type A (PCR), Received Pending 01/13/17 Influenza Type B (PCR), Received Pending 01/13/17 Human Metapneumovirus (PCR) (PETER), Received Pending 01/13/17 Rhinovirus (PCR)(PETER), Received Pending 01/13/17 Parainfluenza Virus Type 1 (PCR), Received Pending 01/13/17 Parainfluenza Virus Type 2 (PCR), Received Pending 01/13/17 Parainfluenza Virus Type 3 (PCR), Received Pending 01/13/17 Parainfluenza Virus Type 4 (NAAT), Received Pending 01/13/17 Respiratory Syncytial Virus (PCR)UT, Received Pending 01/13/17 Chlamydia pneumoniae (PCR), Received Pending 01/13/17 Mycoplasma pneumoniae DNA Detection, Received Pending Result Diagram: 01/12/17 1310 01/12/17 1310 Microbiology Called lab micro-they state that urine culture from 513 showed Klebsiella pneumoniae, sensitive to many antibiotics. They said that they will fax the report up, has not seen it so far Assessment & Plan This is a 71-year-old female status post ureteral stent for pyelonephritis and obstruction 1. Obstructing pyelonephritis. The patient has already gone to the OR. Stent has been placed and she is on Rocephin which will be continued. Await results of sensitivities. Urine cultures from 01/11 show Klebsiella, waiting for the lab report. 2. Acute renal failure, creatinine of 1.32. Probably secondary to dehydration. Patient received a liter or two in the ER, probably more in the OR, and will continue with NS at 100, repeat a BMP in the morning: Decrease fluids to 50 mL per hour 3. Type 2 diabetes. Restart her glimepiride and metformin gradually. Creatinine is still somewhat elevated 4. Obstructive sleep apnea. Patient to use her own CPAP here in the hospital. 5. Hypertension. Her blood pressures are still low. We will restart her Toprol-XL,Norvasc, hydrochlorothiazide slowly and gradually. Pain Evaluation: Adequate Pain Control VTE Mechanical Devices: Intermittant Pneumatic CD Resuscitation Status: CPR: Attempt Resuscitation Time spent 25 minutes Vashti Mesa DO January 13, 2017 06:14
[2017-01-13] MEDS ORDERED: Benzocaine-Menthol Lozenge 2/Pkg PO PRN (21:45)
[2017-01-14 01:55] VITALS: BP 126/74; PULSE 73; RESP 18; O2SAT 92
[2017-01-14 06:05] VITALS: BP 138/74; PULSE 68; RESP 18; O2SAT 92
--- NOTE | 2017-01-14 06:35 | NUR ---
NOC note: Pt alert and oriented x3, but did have one episode of waking feeling disoriented, not knowing where she was. Had CPAP taken apart and SCDs taken apart. After getting up to the bathroom and back to bed, pt had cleared. Could not tolerate CPAP last night, states it was "hurting her mouth". CPOX was put in room to monitor while sleeping, on RA pt dipped to 86%, placed on 1-2 L for the night.
[2017-01-14 07:18] LABS: Mean Corpuscular Hemoglobin 31.9 pg (27.0-35.0); Mean Corpuscular Volume 98.9 fL (81-100)
[2017-01-14 09:20] VITALS: BP 187/77; PULSE 85; RESP 20; O2SAT 95
[2017-01-14 10:25] LABS: APPEARANCE,URINE HAZY (CLEAR,HAZY); COLOR,URINE STRAW (YELLOW); OCCULT BLOOD,URINE LARGE (NEGATIVE); PH,URINE 5.5 (5.0-8.0); UROBILINOGEN,URINE NORMAL (NORMAL)
[2017-01-14] MEDS: 0.9% Sodium Chloride 1,000 ML IV SCH (10:39)
[2017-01-14] MEDS: Insulin LISPRO 300 Unit/3 mL Inj SUBQ SCH ×4 (10:40→21:41)
[2017-01-14] MEDS: Belladonna Alk-Opium 60 mg Rectal Suppository RECTAL SCH ×2 (10:40→20:28)
[2017-01-14] MEDS: Ondansetron 2 mg/mL 2 mL Inj IVPUSH PRN (12:27)
--- NOTE | 2017-01-14 13:32 | NUR ---
SW- Readiness for Discharge Data: Pt is on day 2 of hospitalization for pyelonephriitis, obstructive urital stone. EMR reviewed. Per morning rounds pt is likely to discharge tomorrow pending results of urine cultures. PT and ST have cleared pt to return home, no needs. Pt likely to discharge home via family when medically ready. No needs assessed. SW will continue to follow. Assessment: Pt who is independent at baseline Plan: Pt to discharge home via POV when medically ready. No needs assessed. SW will continue to follow. BENEDICT Phillips
[2017-01-14] MEDS: cefTRIAXone Inj 2,000 MG in Dextrose 5% Minibag Plus 50 ML IV SCH (15:16)
[2017-01-14 16:00] VITALS: BP 168/78; PULSE 79; RESP 20; O2SAT 90
[2017-01-14] MEDS ORDERED: glipiZIDE 2.5 mg ER24 Tablet PO ONE (19:05)
[2017-01-14 19:29] VITALS: BP 158/73; PULSE 80; RESP 20; O2SAT 94
[2017-01-14] MEDS: Fluticasone 0.05% 15 Spray/2 Gm 16 Gm Nasal Spray NASAL SCH (20:28)
--- NOTE | 2017-01-14 20:39 | PCM.PNMED ---
Subjective Date of Service January 14, 2017 Subjective Patient states that she has her cold is still bad, has some facial congestion. She states that she would like to go home soon, she is not taking much pain medication. She denies pain, hematuria. Exam Vital Signs Vital Sign - Last Date Time Temp Pulse Resp B/P Pulse Ox O2 Delivery O2 Flow Rate FiO2 01/14/17 19:29 36.4 80 20 158/73 94 Room Air 01/12/17 16:55 3 Intake and Output 01/13/17 01/13/17 01/14/17 Cumulative From/Thru 15:00 23:00 07:00 01/12/17 13:20 - 01/14/17 06:31 Intake Total 2719 ml 1003 ml 7359 ml Output Total 300 ml 650 ml 1400 ml Balance 2419 ml 353 ml 5959 ml Intake Oral 1010 ml 420 ml 2593 ml IV Total 909 ml 583 ml 3966 ml TPN/PPN 800 ml 800 ml Output Urine Total 300 ml 650 ml 1400 ml # Voids 1 # Bowel Movements 1 1 Exam General: Sleeping while sitting up no acute distress HEENT: Normocephalic, atraumatic, tenderness to tapping over maxillary and frontal sinus Heart: Regular rate and rhythm no S3-S4 sounds Lungs: Clear to auscultation no crackles or wheezes Abdomen obese, normal bowel sounds, mild tenderness in lower quadrants Extremities:: Mild edema is present especially in hands Psych: Negative for anxiety Neuro: No focal deficits Neck: Negative for JVD, negative for hepatojugular reflux IVs and Medications IV Fluids None Medications Reviewed: Medications were reviewed in detail Lab and Diagnostics Result Diagram: 01/14/17 0637 01/14/17 0637 Microbiology Called lab micro-they state that urine culture from 513 showed Klebsiella pneumoniae, sensitive to many antibiotics. They said that they will fax the report up, has not seen it so far: 01/14 cultures show Klebsiella pneumonia sensitive to ceftriaxone, Keflex, Levaquin, Cipro Assessment & Plan This is a 71-year-old female status post ureteral stent for pyelonephritis and obstruction 1. Obstructing pyelonephritis. The patient has already gone to the OR. Stent has been placed and she is on Rocephin which will be continued. Await results of sensitivities. Urine cultures from 01/11 show Klebsiella, waiting for the lab report. 01/14 micro-sent for sensitivity report upstairs. Ceftriaxone was discontinued patient is given Keflex based on the cultures. -- Urology recommendations from 01/13:"My plan will be to switch her over to oral antibiotics once the sensitivitiesare available, and discharge home when stable. I will plan on seeing her in the office in approximately one week's time." 2. Acute renal failure, creatinine of 1.32. Resolved Probably secondary to dehydration. Patient received a liter or two in the ER, probably more in the OR, and will continue with NS at 100, repeat a BMP in the morning: Decrease fluids to 50 mL per hour on 01/13, fluids are discontinued on 01/14 3. Type 2 diabetes. Restart her glimepiride and metformin gradually. Creatinine is still somewhat elevated: -- Creatinine improved -- Restart glipizide 01/14, will restart metformin in the a.m. 4. Obstructive sleep apnea. Patient to use her own CPAP here in the hospital. 5. Hypertension. Her blood pressures are still low. We will restart her Toprol-XL,Norvasc, hydrochlorothiazide slowly and gradually. -- Restarted Norvasc, hydrochlorothiazide, Toprol-XL. 6. Sinusitis: Flonase is ordered for symptomatic relief, she has been on antibiotics. We will consider Levaquin if she is worse 01/15 Disposition: Plan to discharge patient home on 01/15 a.m. on Keflex and with a follow-up with urology Pain Evaluation: Adequate Pain Control VTE Prophylaxis: Sub-Q Heparin (Unfractionated) VTE Mechanical Devices: Intermittant Pneumatic CD Resuscitation Status: CPR: Attempt Resuscitation Time spent 25 minutes Vashti Mesa DO January 14, 2017 20:39
[2017-01-14 21:37] VITALS: BP 193/83; PULSE 81
[2017-01-15] VITALS (7 sets, daily range): BP systolic 151–182; BP diastolic 74–88; PULSE 74–89; RESP 20; O2SAT 93–95
[2017-01-15] MEDS: Heparin 5,000 Unit/mL Inj SUBQ SCH ×2 (00:53→08:46)
[2017-01-15] MEDS: Ondansetron 2 mg/mL 2 mL Inj IVPUSH PRN (06:40)
[2017-01-15] MEDS: Insulin LISPRO 300 Unit/3 mL Inj SUBQ SCH ×2 (07:46→12:00)
[2017-01-15] MEDS: Fluticasone 0.05% 15 Spray/2 Gm 16 Gm Nasal Spray NASAL SCH (08:30)
[2017-01-15] MEDS ORDERED: glipiZIDE 2.5 mg ER24 Tablet PO SCH (08:30)
[2017-01-15] MEDS ORDERED: MeTOProlol XL 50 mg ER24 Tablet PO SCH (08:30)
[2017-01-15] MEDS: Belladonna Alk-Opium 60 mg Rectal Suppository RECTAL SCH (08:46)
[2017-01-15] MEDS ORDERED: MeTOProlol XL 50 mg ER24 Tablet PO ONE (11:15)
[2017-01-15] MEDS ORDERED: CEPH500C PO ×2 (11:19→11:21)
--- NOTE | 2017-01-15 11:23 | PCM.DIMED ---
Discharge Instructions Date of Service January 15, 2017 Dates of Hospitalization January 12, 2017 at 15:40 Discharge Diagnosis Discharge Diagnosis Obstructive pyelonephritis s/p stent placent, HTN, DM II, Acute renal failure , KRYSTAL Medication Instructions Please complete ten more days of keflex Take yogurt for priobiotics Diet Heart Healthy, Diabetic Activity No restrictions Call your provider Fever or Chills, Shortness of breath, Bleeding, Chest pain, Vomitting, Excessive diarrhea, Weakness (unilateral), Other Patient Instructions Follow-up plan F/U with PCP in 2 weeks F/U with Dr. Blackmon in one week Vashti Mesa DO January 15, 2017 11:23
--- NOTE | 2017-01-15 11:35 | NUR ---
Social Work: Discharge Data: Pt is on day 3 of hospitalization. EMR reviewed. D/C orders are in. No d/c planning needs at this time. [employer] will continue to follow if needs arise. Assessment: Pt who is independent at baseline. Plan: Pt will d/c home via POV today. No d/c planning needs at this time. [employer] will continue to follow if needs arise. BENEDICT Dumont
--- NOTE | 2017-01-15 12:35 | NUR ---
Discharge Pt discharged home with daughter via private vehicle. Pt verbalized understanding of discharge, and Rx instructions, personal belongings accounted for and left with pt. Pt a/o x 4, left via wheelchair.
--- NOTE | 2017-01-20 03:19 | PCM.DC.MED ---
Discharge Summary Date of Service January 15, 2017 Dates of Hospitalization Date of Hospital Admission January 12, 2017 at 15:40 Date of Discharge: January 15, 2017 Providers: Admitting Physician: Glendy Wolf MD Primary Care Physician: Annalee Barton MD Attending Physician: Glendy Wolf MD Diagnosis at Time of Discharge Diagnosis at Time of Discharge Obstructive pyelonephritis s/p stent placent, HTN, DM II, Acute renal failure , KRYSTAL Consultations Urology Procedures Invasive Procedures 01/12/17 Left ureteral stent placement Hospital Course This is a 71-year-old female status post ureteral stent for pyelonephritis and obstruction 1. Obstructing pyelonephritis s/p L ureteral stent placement. Stent has been placed and she is on Rocephin Urine cultures from 01/11 show Klebsiella, waiting for the lab report. 01/14 micro-sent for sensitivity report upstairs. Ceftriaxone was discontinued patient is given Keflex based on the cultures at the time of dicharge. -- Urology recommendations from 01/13:"My plan will be to switch her over to oral antibiotics once the sensitivitiesare available, and discharge home when stable. I will plan on seeing her in the office in approximately one week's time." -- On the day of discharge patient is urinating properly, not experiencing hematuria and is asking to be discharged home so she could go back to work -- She is asked to follow-up with the urology in 1 week 2. Acute renal failure, creatinine of 1.32. Resolved Probably secondary to dehydration. Patient received a liter or two in the ER, probably more in the OR, and will continue with NS at 100, repeat a BMP in the morning: Decrease fluids to 50 mL per hour on 01/13, fluids are discontinued on 01/14 3. Type 2 diabetes. Restart her glimepiride and metformin gradually. Creatinine is still somewhat elevated: -- Creatinine improved -- Restart glipizide 01/14, will restart metformin in the a.m. 4. Obstructive sleep apnea. Patient to use her own CPAP here in the hospital. 5. Hypertension. Her blood pressures are still low. We will restart her Toprol-XL,Norvasc, hydrochlorothiazide slowly and gradually. -- Restarted Norvasc, hydrochlorothiazide, Toprol-XL. 6. Sinusitis: Flonase is ordered for symptomatic relief, she has been on antibiotics. We will consider Levaquin if she is worse 01/15 Exam Vital Signs (Last) Date Time Temp Pulse Resp B/P Pulse Ox O2 Delivery O2 Flow Rate FiO2 01/15/17 11:07 36.7 89 20 180/88 95 Room Air 01/12/17 16:55 3 Exam General: Sleeping while sitting up no acute distress HEENT: Normocephalic, atraumatic, tenderness to tapping over maxillary and frontal sinus Heart: Regular rate and rhythm no S3-S4 sounds Lungs: Clear to auscultation no crackles or wheezes Abdomen obese, normal bowel sounds, mild tenderness in lower quadrants Extremities:: Mild edema is present especially in hands Psych: Negative for anxiety Neuro: No focal deficits Neck: Negative for JVD, negative for hepatojugular reflux Test 01/12/17 13:10 01/13/17 06:33 01/14/17 06:37 01/14/17 09:25 D-Dimer 3.16mg/L FEU (<0.50) Hemoglobin A1c 7.2% (4.8-5.6) Troponin T 0.010ug/L (0.0-0.011) Pro-B-Type Natriuretic Peptide 2564pg/mL (0-301) Procalcitonin 5.11ng/mL (0.00-0.08) Thyroid Stimulating Hormone (TSH) 2.040uIU/mL (0.450-4.500) Neutrophils (%) (Auto) 71.9% (40-74) Lymphocytes (%) (Auto) 12.6% (14-46) Monocytes (%) (Auto) 14.4% (4-12) Eosinophils (%) (Auto) 0.9% (0-5) Basophils (%) (Auto) 0.1% (0-3) Total Bilirubin 0.5mg/dL (0.0-1.2) Aspartate Amino Transf (AST/SGOT) 12U/L (0-50) Alanine Aminotransferase (ALT/SGPT) 13U/L (0-32) Alkaline Phosphatase 43U/L (25-165) Total Protein 5.6g/dL (6.4-8.4) Albumin 3.2g/dL (3.4-5.0) White Blood Count 7.5th/mm3 (3.8-10.1) Red Blood Count 3.60mil/mm3 (3.90-5.20) Hemoglobin 11.5g/dL (12.0-15.6) Hematocrit 35.6% (35.0-46.0) Mean Corpuscular Volume 98.9fL (81-100) Mean Corpuscular Hemoglobin 31.9pg (27.0-35.0) Mean Corpuscular Hemoglobin Concent 32.3% (32.0-37.0) Red Cell Distribution Width 13.0% (12.3-15.4) Platelet Count 112bil/L (150-400) Magnesium Level 2.0mg/dL (1.6-2.6) Urine Color Straw (YELLOW) Urine Appearance Hazy (CLEAR,HAZY) Urine pH 5.5 (5.0-8.0) Urine Specific [place] 1.020 (1.003-1.035) Urine Protein 30mg/dL (NEG,TRACE) Urine Glucose (UA) Negativemg/dL (NEGATIVE) Urine Ketones Negativemg/dL (NEGATIVE) Urine Occult Blood Large (NEGATIVE) Urine Nitrite Negative (NEGATIVE) Urine Bilirubin Negative (NEGATIVE) Urine Urobilinogen Normalmg/dL (NORMAL) Urine Leukocyte Esterase Small (NEGATIVE) Urine RBC 11-50/hpf (0-2) Urine WBC >50/hpf (0-5) Urine Epithelial Cells Occasional/hpf (NONE-MOD) Urine Crystals None seen (NONE SEEN) Urine Bacteria Few/hpf (NONE-FEW) Urine Hyaline Casts None/lpf (NONE) Urine Granular Casts None seen (NONE SEEN) Urine Waxy Casts None seen (NONE SEEN) Urine Red Blood Cell Casts None seen (NONE SEEN) Urine White Blood Cell Casts None seen (NONE SEEN) Urine Mucus None seen (None Seen) Urine Trichomonas None seen (NONE SEEN) Urine Yeast None (NONE SEEN) Urinalysis Comment None Urine Culture Reflexed Indicated Test 01/15/17 07:03 Sodium Level 136mEq/L (134-144) Potassium Level 4.1mEq/L (3.5-5.2) Chloride Level 99mEq/L (97-108) Carbon Dioxide Level 24mmol/L (18-29) Blood Urea Nitrogen 13mg/dL (8-27) Creatinine 0.57mg/dL (0.57-1.00) Estimat Glomerular Filtration Rate 150mL/min (>59) Glucose Level 164mg/dL (60-99) Calcium Level 9.3mg/dL (8.5-10.1) Microbiology Results Called lab micro-they state that urine culture from 513 showed Klebsiella pneumoniae, sensitive to many antibiotics. They said that they will fax the report up, has not seen it so far: 01/14 cultures show Klebsiella pneumonia sensitive to ceftriaxone, Keflex, Levaquin, Cipro Discharge Medications Discharge Medications Amlodipine (Amlodipine) 5 Mg Tablet 10 MG PO DAILY (Reported) Aspirin (Aspirin) 81 Mg Tablet 81 MG PO DAILY (Reported) Cephalexin (Cephalexin) 500 Mg Capsule 500 MG PO Q12H Prescribed by: VASHTI MCGEE DO Glipizide ER (Glipizide ER) 10 Mg Tab.er.24 10 MG PO DAILY (Reported) Hydrochlorothiazide (Hydrochlorothiazide) 25 Mg Tablet 25 MG PO DAILY (Reported ) Meloxicam (Meloxicam) 7.5 Mg Tablet 7.5 MG PO DAILY (Reported) Metformin (Metformin) 500 Mg Tablet 1,000 MG PO BID (Reported) Metoprolol Succinate ER (Toprol XL) 200 Mg Tabcr 200 MG PO DAILY (Reported) Pregabalin (Lyrica) 150 Mg Capsule 150 MG PO HS (Reported) As needed HydrOXYzine HCl (HydrOXYzine HCl) 10 Mg Tablet 10 MG PO BID PRN PRN For Itching (Reported) oxyCODONE (oxyCODONE) 10 Mg Tablet 10 MG PO Q4H PRN PRN For Pain (Reported) Additional med instructions Please complete ten more days of keflex Take yogurt for priobiotics Followup Plan Follow-up plan F/U with PCP in 2 weeks F/U with Dr. Blackmon in one week Discharge Diet: Heart Healthy, Diabetic Discharge Activity: No restrictions Time spent 35 min Vashti Mcgee DO January 15, 2017 11:24
[2017-02-05] MEDS ORDERED: VALS320T12 PO (11:24)
[2017-02-05] MEDS ORDERED: OXAP-1 PO (11:24)
[2017-02-05] MEDS ORDERED: MAGN100T5 PO (11:24)
[2017-02-05] MEDS ORDERED: HYDR-3825 PO (11:24)
[2017-02-05] MEDS ORDERED: NPR500T PO (11:24)
[2017-02-05] MEDS ORDERED: DULO60CA61 PO (11:24)
[2017-02-05] MEDS ORDERED: HYDR-4003 PO (11:24)
[2017-02-05] MEDS ORDERED: TAMS0.4C98 PO (11:24)
[2017-02-05] MEDS ORDERED: SIMV20TA4 PO (11:46)
== END 2017-01-15 12:35 | disposition home or self-care (01) | DRG 694 ==
LOC: SED 13:11 → SAS 15:30 → MPC 15:40 → OBSVTOIN 15:40 → MPC 15:42
PROVIDERS: ADMIT Hospitalist; ATTEND Hospitalist
PROC: 0T778DZ Dilation of Left Ureter with Intraluminal Device, Via Natural or Artificial Opening Endoscopic (ICD-10-PCS; principal; 2017-01-12 16:00)
DX: N20.2 Calculus of kidney with calculus of ureter (principal); N10 Acute pyelonephritis; N17.9 Acute kidney failure, unspecified; E11.9 Type 2 diabetes mellitus without complications; G47.33 Obstructive sleep apnea (adult) (pediatric); J32.9 Chronic sinusitis, unspecified; Z79.82 Long term (current) use of aspirin; Z87.442 Personal history of urinary calculi

== ENCOUNTER 2017-02-06 06:23 | Day surgery (SDC) | payer MEDICARE, OTHER ==
--- NOTE | 2017-02-05 15:47 | PCM.ANEPRE ---
Anesthesia Pre-Op Review Reason for Review: COMORBIDITIES; BMI>45 Anesthesia Recommendations: Proceed with Procedure Additional Comments 71 yo woman scheduled for cysto with laser lithotripsy with medical hx of BMI 47 , DM, KRYSTAL, and HTN. Low risk surgery. OK to proceed with KRYSTAL precautions. Chart Reviewed by: Froy Damian MD Feb 05, 2017 15:47
[2017-02-06] VITALS (9 sets, daily range): BP systolic 139–175; BP diastolic 64–74; PULSE 76–85; RESP 9–17; O2SAT 95–100
[~2017-02-06] VITALS: Ht 165.1 cm; Wt 126.9 kg
[~2017-02-06 06:23] MED LIST changes: -ASPI-628 PO; +ASPI-973 PO; -CIPR-198 PO; +DULO60CA61 PO; -GLIP2.5T2 PO; +GLIP5TAB21 PO; +HYDR-3605 PO; +HYDR-3825 PO; +MAGN100T5 PO; -MAGN200T PO; -METF10002 PO; +METF500T4 PO; -NAPR500T5 PO; +NPR500T PO; -ONDA4TAB12 PO; +SIMV20TA4 PO; +TAMS0.4C98 PO
[2017-02-06] MEDS ORDERED: Ondansetron 2 mg/mL 2 mL Inj ONE (06:24)
[2017-02-06] MEDS ORDERED: fentaNYL-PF 50 mCg/mL 2 mL Inj ONE (06:24)
[2017-02-06] MEDS ORDERED: Dexamethasone 4 mg/mL Inj ONE (06:24)
[2017-02-06] MEDS ORDERED: Propofol 10,000 mCg/mL 20 mL Inj ONE (06:24)
--- NOTE | 2017-02-06 06:36 | PCM.HPANE ---
Patient Data Surgeon Admitting Provider: Attending Provider:Shonna Blackmon MD Primary Care Physician:Annalee Barton MD Other Provider:Mylene Bentleyingham Anesthesia Reason for Visit Right Kidney Stone Ht/WT & BMI Height (Feet): 5 Height (Inches): 5 Weight (Kilograms): 130 Body Mass Index 47.00 Allergies Coded Allergies: Penicillins (Verified Allergy, Severe, RASH (HAS TAKEN CEPHALOSPORINS W/O PROBLEMS), 02/05/17) Sulfa (Sulfonamide Antibiotics) (Verified Allergy, Unknown, UNKNOWN, ) Zinc (Verified Adverse Reaction, Severe, GI PROBLEMS, 02/05/17) aspirin (Verified Adverse Reaction, Severe, HALLUCINATIONS (FROM PERCODAN) , 02/05/17) morphine (Verified Adverse Reaction, Severe, "I go banana's", 02/05/17) oxycodone (Verified Adverse Reaction, Severe, HALLUCINATIONS, 02/05/17) Past Anesthesia History Anesthesia History: Positive for:: Abnormal Airway, Denies:: Anesthesia Reactions, Fam Anesthesia Reaction, Fam Malignant Hypertherm, Malignant Hyperthermia Diabetes History Hx Diabetes?: Yes (NIDDM) Type of Diabetes: Type II Glycemic Control: Oral Medication MRSA MRSA: No Medications Blood Thinner: Aspirin Hypertension Medication: Yes (VALSARTAN,AMLODIPINE) Home Meds Incl Beta Belen: Yes (METOPROLOL) Reported Medications Simvastatin 20 Mg Pawxoy59 Mg PO HS Ref 0 02/05/17 Valsartan 320 Mg Axzlzs853 Mg PO DAILY 02/05/17 Tamsulosin (Flomax)0.4 Mg Capsule0.4 Mg PO DAILY Ref 0 02/05/17 Oxaprozin 600 Mg Jwufcd585 Mg PO DAILY 02/05/17 Naproxen 500 Mg Hgf590 Mg PO BID PRN For Pain Ref 0 02/05/17 Magnesium Amino Acid Chelate (Magnesium)100 Mg Cgzdtm218 Mg PO DAILY 02/05/17 Hydrocodone-Acetaminophen 5-325 mg 1 Each Tablet1 Tablet PO Q4H PRN For Pain Ref 0 02/05/17 Duloxetine 60 Mg Capsule.dr60 Mg PO DAILY Ref 0 02/05/17 Metformin 500 Mg Tablet1,000 Mg PO BID Ref 0 01/12/17 Aspirin 81 Mg Gglvhy34 Mg PO DAILY Ref 0 01/12/17 HydrOXYzine HCl 10 Mg Yfmxhr56 Mg PO BID PRN For Itching Ref 0 01/12/17 Glipizide ER 10 Mg Tab.er.2410 Mg PO DAILY 01/12/17 Metoprolol Succinate ER (Toprol XL)200 Mg Psnmv848 Mg PO DAILY 30 Days Ref 0 02/03/15 Amlodipine 5 Mg Jiplqm60 Mg PO DAILY 30 Days Ref 0 02/03/15 Discontinued Reported Medications Hydrocodone-Acetaminophen 7.5-325 mg 1 Each Tablet1 Tablet PO Q4H PRN For Pain Ref 0 02/05/17 oxyCODONE 10 Mg Mtnhcu94 Mg PO Q4H PRN For Pain Ref 0 01/12/17 Hydrochlorothiazide 25 Mg Idiwfi21 Mg PO DAILY 30 Days Ref 0 01/12/17 Meloxicam 7.5 Mg Tablet7.5 Mg PO DAILY 30 Days Ref 0 01/12/17 Pregabalin (Lyrica)150 Mg Enfhoma166 Mg PO HS 30 Days Ref 0 01/12/17 Discontinued Scripts Cephalexin 500 Mg Nlymtso529 Mg PO Q12H 10 Days Prov:Vashti Mesa DO 01/15/17 History History of ENT Problems?: Yes HEENT History: Positive for:: Abnormal Airway Sinus Problem (r/t use of CPAP-makes pt congested) Denture Type: None Full- Upper Teeth Condition: Within Normal Limits Hx of Heart Problems?: Yes Cardiovascular History: Positive for:: Edema Hypertension (HYPERLIPIDEMIA) Denies:: Congestive Heart Failure Heart Murmur Hx of Respiratory Problem?: No Respiratory History: Positive for:: Use of C-PAP Machine (KRYSTAL+ W/ CPAP ( NEEDS REPEAT SLEEP STUDY)) Denies:: Tuberculosis Hx Neurologic Problems?: Yes Neurological History: Positive for:: Headaches Hx of GI Problems?: Yes Other GI Pertinent History: C/OF DIARRHEA, ABD PAIN, VOMITING Hx of Problems?: Yes Genitourinary History: Positive for:: Kidney Stones (S/P STONE EXTRACTION RT KIDNEY STONE=CURRENT PROBLEM) Urinary Tract Infection (HX OF PYELONEPHRITIS-HOSP 12/2016) Other Pertinent History: C/OF FREQUENCY,DYSURIA S/P CYSTO,LT STENT (01/12/17) Female Hx: Denies:: Currently Problems with Breasts? Skin History: Denies:: History Skin Disorders? Pressure Ulcers Hx Musculoskeletal Problems?: Yes Musculoskeletal History: Positive for:: Back Injury (chronic back pain r/t herniated L2-L3 disks) Degenerative Joint Joint Replacement (S/P LT TKA) Musculoskeletal Trauma (S/P RT SHOULDER RPR) Osteoarthritis Hx of Psycho/Social Problems?: Yes Psycho Social History: Positive for:: Anxiety Hx Depression Hx Surgeries?: Yes (left total knee 2009/ prior kidney stone,RT SHOULDER RPR, CYSTO/LT STENT) Hx Any Other Health Problems?: Yes Other History: Denies:: Cancer Endocrine Disease Hospitalization Thyroid Disease History Blood Transfusions: Denies:: Blood Transfusions Hx Diabetes: Yes (NIDDM) Hx Alcohol Use: NoHx Substance Use: No Smoking Status: Former Smoker Have You Smoked inLast 12 mo: No Stop/Bang S-Snoring: Do You Snore Loudly: No T-Tired: feel tired, fatigued: Yes O-Obsered: Observed not breath: No P-Blood Pressure: treated: Yes B- Body Mass Index > 35 kg/m2: Yes A- Age over 50: Yes N- Neck Large Circumference: Yes G- Gender Male: No KRYSTAL Total Score: 5 KRYSTAL Risk Assessment: High Risk, =/>3 Yes KRYSTAL Category 4 OutPt Procedure: Yes Risk Assessment Category Category 1A: Patient has history of documented sleep apnea, and HAS NOT received any narcotic, sedative or anesthesia administration during this stay. Category 1B: Patient has history of documented sleep apnea, and HAS received any narcotic , sedative or anesthesia administration during this stay Category 2: Patient has SUSPECTED Obstructive Sleep Apnea, and HAS received any narcotic , sedative or anesthesia administration during this stay. Category 3: Patient has SUSPECTED Obstructive Sleep Apnea and HAS NOT received narcotic, sedative or anesthesia administration during this stay. Category 4: Outpatient in Procedural Areas with known sleep apnea or who screen positive for High Risk via the STOP/BANG questionnaire. Exam Exam General Appearance: Alert, Oriented X3, Cooperative, No Acute Distress HEENT/AIRWAY: MP 2 Lungs: Clear to Auscultation, Normal Air Movement Heart: Exam Unremarkable, Regular Rate/Rhythm, No Murmurs/Rubs/Gallops Plan Impression Patient chart reviewed, patient interviewed and anesthestic plan with risks, benefits, and alternatives discussed, and informed consent obtained. ASA Physical Status: ASA2 Plus Emergency Anesthetic Plan: GA Bene/Risks/Altern/Consents: Yes HP Complete Prior to Induction: Yes Eliza Taylor MD Feb 06, 2017 06:36
[2017-02-06] MEDS ORDERED: CeFAZolin Inj 3 Gm/ D5W 50 mL Bag IV ONE (06:52)
[2017-02-06] MEDS: Lactated Ringer's 1,000 ML IV SCH ×2 (07:37→08:05)
[2017-02-06] MEDS ORDERED: Lactated Ringer's 1,000 ML IV SCH (08:18)
[2017-02-06] MEDS ORDERED: Lactated Ringer's 500 ML IV PRN (08:18)
[2017-02-06] MEDS ORDERED: fentaNYL-PF 50 mCg/mL 2 mL Inj IVPUSH PRN (08:20)
[2017-02-06] MEDS ORDERED: Ondansetron 2 mg/mL 2 mL Inj IVPUSH PRN (08:20)
[2017-02-06] MEDS ORDERED: Atropine 0.4 mg/mL Inj IVPUSH PRN (08:20)
[2017-02-06] MEDS ORDERED: Phenylephrine 10,000 mCg/mL Inj IVPUSH PRN (08:20)
[2017-02-06] MEDS ORDERED: Dexamethasone 4 mg/mL Inj IVPUSH PRN (08:20)
[2017-02-06] MEDS ORDERED: HYDROmorphone 1 mg/mL Inj IVPUSH PRN (08:20)
[2017-02-06] MEDS ORDERED: MetoCLOpramide 5 mg/mL 2 mL Inj IVPUSH PRN (08:20)
[2017-02-06] MEDS ORDERED: Labetalol 5 mg/mL 4 mL Inj IV PRN (08:20)
[2017-02-06] MEDS ORDERED: EPHEDrine Sulfate 50 mg/mL Inj IVPUSH PRN (08:20)
[2017-02-06] MEDS ORDERED: HYDROcodone-APAP 5-325 mg Tablet PO PRN (08:50)
--- NOTE | 2017-02-06 09:04 | PCM.ANEP1 ---
Post Anesthesia PACU Phase 1 Assessment Vital Signs Vital Signs Date Time Temp Pulse Resp B/P Pulse Ox O2 Delivery O2 Flow Rate FiO2 02/06/17 08:50 36.4 79 9 168/65 100 Simple Mask 8 02/06/17 06:57 36.1 80 14 139/66 97 Room Air Anesthetic Administered: GA Level of Alertness: Awake, talking CAMPA's with Equal Strength: Yes Pain: No Nausea or Vomiting: No CV Function & Hydration Stable: No Airway Device: Oxygen Delivery: Simple Mask Lungs: Clear to Auscultation, Normal Air Movement PACU Phase 2 Assessment Complications: No Follow up Care: No Patient Instructions Provided: N/A Eliza Taylor MD Feb 06, 2017 09:04
--- NOTE | 2017-02-06 09:30 | OP ---
[address] [address] OPERATIVE REPORT PATIENT: DARCIE SHAH : 1945 MR#: [id number] ADMIT: 02/06/2017 JOB ID: [id number] DATE OF SURGERY: 02/06/2017 SURGEON: Shonna Blackmon M.D. PREOPERATIVE DIAGNOSIS(ES): Left ureteral calculus. POSTOPERATIVE DIAGNOSIS(ES): Left ureteral calculus. PROCEDURE: Cystoscopy, ureteroscopy, removal of stent, stone basketing. ANESTHESIA: General anesthetic, Dr. Taylor. DESCRIPTION OF PROCEDURE: Under general anesthetic, the patient was placed in the lithotomy position. Genitalia prepped and draped in a sterile manner. A 22-Hungarian cystoscope was introduced through a normal urethra. The ureteral orifices were normal in position and appearance. No stent was visible. Fluoroscopy was performed showing the stent in the distal ureter. A 0.035 Glidewire was advanced to the level of the left renal pelvis. Over this, a 15-Hungarian balloon dilation catheter was passed and the distal ureter dilated. A 7-Hungarian semi rigid ureteroscope was then advanced into the ureter. The stent was grasped with an alligator forceps and withdrawn. The ureteroscope was then introduced again alongside the wire. The stone which had been at the ureteropelvic junction was now in the distal ureter. The stone was engaged with a nitinol tipless basket and withdrawn intact. Inspection of the ureter revealed minimal edema. It was, therefore, elected not to leave a stent in place. The patient tolerated the procedure well, left the operating room in good condition.
[2017-02-06] MEDS ORDERED: Belladonna Alk-Opium 60 mg Rectal Suppository RECTAL SCH (20:30)
[2017-02-17 09:12] LABS: Stone Color Brown (.)
== END 2017-02-06 23:59 | disposition home or self-care (01) ==
LOC: SAS 06:23
PROVIDERS: ATTEND Urology
DX: N20.1 Calculus of ureter (principal); E11.9 Type 2 diabetes mellitus without complications; Z79.84 Long term (current) use of oral hypoglycemic drugs; I10 Essential (primary) hypertension; G47.33 Obstructive sleep apnea (adult) (pediatric)
CPT/HCPCS: 52310; 76000; 82360; J0690; J1100; J2405; J3010; J7120